=== PATIENT | male | born 1995 | race Caucasian/White ===

== ENCOUNTER → 2024-04-30 | Outpatient (CLI) | payer BC ==
[2024-04-30 09:26] LABS: ALBUMIN 4.7 g/dL (3.5-5.0)
[2024-04-30 09:27] LABS: CALCIUM 9.8 mg/dL (8.3-10.5)
[2024-04-30 09:28] LABS: TOTAL PROTEIN 6.9 g/dL (6.4-8.3)
[2024-04-30 09:30] LABS: TOTAL BILIRUBIN 1.1 mg/dL (0.2-1.2)
== END ==
LOC: LAB 09:04
PROVIDERS: Family Medicine
DX: Z13.1 Encounter for screening for diabetes mellitus (principal); Z13.220 Encounter for screening for lipoid disorders